=== PATIENT | female | born 1980 | race Caucasian/White ===

== ENCOUNTER 2017-02-19 19:43 | Emergency (ER) | payer MEDICAID, OTHER ==
[~2017-02-19] VITALS: Ht 152.4 cm; Wt 49.9 kg
[~2017-02-19 19:43] MED LIST: DIAZ5TAB PO; IBUP-1007 PO; METR500T PO; NITR100C62 PO; ONDA4TAB10 SL; POLY17PO29 PO
[2017-02-19 19:51] VITALS: BP 111/68
--- NOTE | 2017-02-19 19:51 | PHYS DOC ---
Past Medical History Past Medical History: Sciatica Past Surgical History: , Tubal ligation Additional Past Surgical Histo: x 3 Alcohol Use: None Drug Use: None Adult General Chief Complaint Chief Complaint: ABDOMINAL PAIN [facility] Patient is a 36 year old female presenting to the emergency department for evaluation of suprapubic abdominal pain that has been going on for the past 2 days and she says it is associated with burning urination but no fevers chills vaginal bleeding vaginal discharge diarrhea or constipation. Patient denies having any abdominal surgeries. Patient is in no obvious distress with normal vital signs. He has concerns of STD exposure but she is not willing to be treated rather she wants to have the results sent and then be called and they come back positive. Review of Systems Review of Systems Constitutional: Denies fever or chills [] Cardiovascular: No additional information not addressed in HPI [] GI: + abdominal pain. No nausea, vomiting, bloody stools or diarrhea [] : + dysuria Allergies Allergies Allergies Coded Allergies Type Severity Reaction Last Updated Verified meperidine Allergy Unknown Itching 01/19/16 Yes Physical Exam Physical Exam Constitutional: Well developed, well nourished, no acute distress, non-toxic appearance. [] Cardiovascular:Heart rate regular rhythm, no murmur [] Lungs & Thorax: Bilateral breath sounds clear to auscultation [] Abdomen: Bowel sounds normal, soft, + mild suprapubic tenderness, no rebound or guarding, no masses, no pulsatile masses. [] Current Patient Data Vital Signs Vital Signs Date Time Temp Pulse Resp B/P (MAP) Pulse Ox O2 Delivery O2 Flow Rate FiO2 02/19/17 19:51 98.2 91 18 111/68 (82) 99 Room Air 98.2 Lab Values Laboratory Tests Test 02/19/17 20:15 Urine Collection Type U cath Urine Color Yellow Urine Clarity Cloudy Urine pH 7.5 Urine Specific Story >=1.030 Urine Protein 100 mg/dL (NEG-TRACE) Urine Glucose (UA) Negative mg/dL (NEG) Urine Ketones (Stick) Trace mg/dL (NEG) Urine Blood Small (NEG) Urine Nitrite Negative (NEG) Urine Bilirubin Negative (NEG) Urine Urobilinogen Dipstick 2.0 mg/dL (0.2 mg/dL) Urine Leukocyte Esterase Moderate (NEG) Urine RBC Occ /HPF (0-2) Urine WBC 20-40 /HPF (0-4) Urine Squamous Epithelial Cells Occ /LPF Urine Bacteria 0 /HPF (0-FEW) Urine Mucus Mod /LPF Microbiology 02/19/17 Wet Prep - Final, Complete EKG EKG [] Radiology/Procedures Radiology/Procedures [] Course & Med Decision Making Course & Med Decision Making Patient does have results consistent with a urinary tract infection so she'll be placed on Cipro and Pyridium told to follow with her primary care provider in the next 2-3 days and come back to the ER sooner with worsening pain fevers vomiting or other general concerns. Patient aware and agreeable with plan and verbalized understanding of the above instructions. Of note I did tell patient about the bacterial vaginosis diagnosis but she did not want to be treated with Flagyl at this time. Says that she will follow with her primary care provider later next week for reassessment. Dragon Disclaimer Dragon Disclaimer This electronic medical record was generated, in whole or in part, using a voice recognition dictation system. Departure Departure Impression: Primary Impression: UTI (urinary tract infection) Disposition: 01 HOME, SELF-CARE Condition: GOOD Referrals: UNKNOWN PCP NAME (PCP) Patient Instructions: Urinary Tract Infection Additional Instructions: DRINK PLENTY OF FLUIDS AND EAT A GOOD DIET. COME BACK TO THE ED WITH WORSENING PAIN, FEVERS, VOMITING, OR OTHER GENERAL CONCERNS. Scripts Phenazopyridine Hcl (PYRIDIUM) 100 Mg Tablet 100 MG PO TID, #6 TAB Prov: NED SAMUEL DO 02/19/17 Ciprofloxacin Hcl (CIPROFLOXACIN HCL) 250 Mg Tablet 1 TAB PO BID, #6 TAB Prov: NED SAMUEL DO 02/19/17 Problem Qualifiers Primary Impression: UTI (urinary tract infection) Urinary tract infection type: acute cystitis Hematuria presence: without hematuria Qualified Codes: N30.00 - Acute cystitis without hematuria NED SAMUEL DO Feb 19, 2017 19:51
[2017-02-19 20:24] LABS: BILIRUBIN,URINE NEGATIVE (NEG); GLUCOSE,URINE NEGATIVE (NEG); NITRITE,URINE NEGATIVE (NEG); PH,URINE 7.5; PROTEIN,URINE 100 mg/dL (NEG-TRACE)
[2017-02-19 20:35] LABS: BACTERIA,URINE 0 /HPF (0-FEW); RBC,URINE OCC /HPF (0-2); SQUAMOUS EPITHELIAL CELL,UR OCC /LPF; WBC,URINE 20-40 /HPF (0-4)
[2017-02-19] MEDS ORDERED: PHEN100T82 PO (20:42)
[2017-02-19] MEDS ORDERED: CIPR250T PO (20:42)
== END 2017-02-19 21:10 | disposition home or self-care (01) ==
LOC: ER 19:43
DX: N30.00 Acute cystitis without hematuria (principal); Z98.51 Tubal ligation status; Z88.8 Allergy status to other drugs, medicaments and biological substances
CPT/HCPCS: 51701; 81001; 87086; 99284; Q0111

== ENCOUNTER 2017-08-11 16:13 | Emergency (ER) | payer OTHER ==
[2017-08-11] MEDS: ACETAMINOPHEN 500 MG TABLET PO (16:45)
[2017-08-11 17:09] LABS: INFLUENZA A PATIENT NEGATIVE (NEGATIVE); INFLUENZA B PATIENT NEGATIVE (NEGATIVE); OBC FLU VALID
== END 2017-08-11 17:21 | disposition home or self-care (01) ==
LOC: ER 16:13
DX: J02.0 Streptococcal pharyngitis (principal); H66.92 Otitis media, unspecified, left ear; M79.1 Myalgia; Z88.8 Allergy status to other drugs, medicaments and biological substances
CPT/HCPCS: 87804; 87804-59; 99284

== ENCOUNTER 2018-05-13 16:52 | Emergency (ER) | payer OTHER ==
[~2018-05-13] VITALS: Ht 152.4 cm; Wt 59.0 kg
[~2018-05-13 16:52] MED LIST changes: +AMOX500C PO; +CIPR250T PO; +PHEN100T82 PO
[2018-05-13 17:15] VITALS: BP 108/62
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
[2018-05-13 17:36] LABS: BILIRUBIN,URINE NEGATIVE (NEG); CLARITY,URINE CLOUDY; COLOR,URINE YELLOW; NITRITE,URINE NEGATIVE (NEG); PH,URINE 7.5; PROTEIN,URINE NEGATIVE (NEG-TRACE)
[2018-05-13] MEDS ORDERED: AZITHROMYCIN 250 MG TABLET. PO ONE (17:45)
[2018-05-13] MEDS ORDERED: cefTRIAXone IM 250 MG VIAL IM ONE (17:45)
[2018-05-13] MEDS ORDERED: metroNIDAZOLE 500 MG TABLET PO ONE (17:45)
[2018-05-13 17:48] LABS: BACTERIA,URINE FEW /HPF (0-FEW); RBC,URINE 0 /HPF (0-2); SQUAMOUS EPITHELIAL CELL,UR FEW /LPF; WBC,URINE 0 /HPF (0-4)
[2018-05-17 15:29] LABS: GC PROBE Negative (Negative)
== END 2018-05-13 18:20 | disposition home or self-care (01) ==
LOC: ER 16:52
DX: N89.8 Other specified noninflammatory disorders of vagina (principal); Z11.3 Encounter for screening for infections with a predominantly sexual mode of transmission; Z88.6 Allergy status to analgesic agent
CPT/HCPCS: 81001; 81025; 96372; 99284; J0696; Q0111; Q0144; 87491; 87591

== ENCOUNTER 2018-07-18 12:22 | Emergency (ER) | payer OTHER ==
[~2018-07-18] VITALS: Ht 152.4 cm; Wt 54.4 kg
[2018-07-18 12:41] VITALS: BP 106/77
--- NOTE | 2018-07-18 12:45 | PHYS DOC ---
Past Medical History Past Medical History: No Pertinent History, Sciatica Past Surgical History: , Tubal ligation Additional Past Surgical Histo: x 3 Alcohol Use: None Drug Use: None Adult General Chief Complaint Chief Complaint: INSECT BITE [facility] HPI Patient is a 38 year old female presented ER today for evaluation of a painful lesion on her left upper back for about 2 days. Patient was not sure if she was bitten by a spider. Patient went to work today, she was sent here for evaluation. Patient denies any abdominal pain, no chest pain, no neck pain, no headache. Patient denies any fever. She is up-to-date on tetanus vaccination. Review of Systems Review of Systems Constitutional: Denies fever or chills [] Eyes: Denies change in visual acuity, redness, or eye pain [] HENT: Denies nasal congestion or sore throat [] Respiratory: Denies cough or shortness of breath [] Cardiovascular: No additional information not addressed in HPI [] GI: Denies abdominal pain, nausea, vomiting, bloody stools or diarrhea [] : Denies dysuria or hematuria [] Musculoskeletal: Denies back pain or joint pain [] Integument: POSITIVE FOR PAINFUL LESION ON LEFT UPPER BACK AREA. ] Neurologic: Denies headache, focal weakness or sensory changes [] Endocrine: Denies polyuria or polydipsia [] All other systems were reviewed and found to be within normal limits, except as documented in this note. Current Medications Current Medications Current Medications Medications (Trade) Dose Ordered Sig/Duran Start Time Stop Time Status Last Admin Dose Admin Acetaminophen/ Hydrocodone Bitart (Lortab 5/325) 2 tab 1X ONCE 07/18/18 13:00 07/18/18 13:01 DC 07/18/18 12:57 2 TAB Lidocaine HCl (Lidocaine 1% 20ml Vial) 20 ml 1X ONCE 07/18/18 13:00 07/18/18 13:01 DC 07/18/18 12:57 20 ML Allergies Allergies Allergies Coded Allergies Type Severity Reaction Last Updated Verified meperidine Allergy Unknown Itching 01/19/16 Yes Physical Exam Physical Exam Constitutional: Well developed, well nourished, no acute distress, non-toxic appearance. [] HENT: Normocephalic, atraumatic, bilateral external ears normal, oropharynx moist, no oral exudates, nose normal. [] Eyes: PERRLA, EOMI, conjunctiva normal, no discharge. [] Neck: Normal range of motion, no tenderness, supple, no stridor. [] Cardiovascular:Heart rate regular rhythm, no murmur [] Lungs & Thorax: Bilateral breath sounds clear to auscultation [] Abdomen: Bowel sounds normal, soft, no tenderness, no masses, no pulsatile masses. [] Skin: Warm, dry, THERE IS 4 CM BY 4 CM INDURATED, ERYTHEMA, TENDER LESION ON LEFT UPPER BACK, WITH DARK CENTRAL NECROTIC AREA. Back: No tenderness, no CVA tenderness. [] Extremities: No tenderness, no cyanosis, no clubbing, ROM intact, no edema. [] Neurologic: Alert and oriented X 3, normal motor function, normal sensory function, no focal deficits noted. [] Psychologic: Affect normal, judgement normal, mood normal. [] Current Patient Data Vital Signs Vital Signs Date Time Temp Pulse Resp B/P (MAP) Pulse Ox O2 Delivery O2 Flow Rate FiO2 07/18/18 12:57 16 99 Room Air 07/18/18 12:41 98.3 102 106/77 (87) 98.3 EKG EKG [] Radiology/Procedures Radiology/Procedures [] Course & Med Decision Making Course & Med Decision Making Pertinent Labs and Imaging studies reviewed. (See chart for details) [] Dragon Disclaimer Dragon Disclaimer This electronic medical record was generated, in whole or in part, using a voice recognition dictation system. Incision and Drainage Indication: abscess Procedure: The patient was positioned appropriately. Local anesthesia was LIDOCAINE 1% PLAIN, USED 10 ML, INJECTED WITH 27 GAUGE NEEDLE. An incision was then made BY #11 SCAPEL over the apex of the lesion and WHITE PUS, material was expressed. The drainage cavity was irrigated and NO PACKING WAS PLACED. The patients tetanus status updated as needed. The patient tolerated the procedure well. Complications: none. Departure Departure Impression: Primary Impression: Abscess or cellulitis of back Disposition: 01 HOME, SELF-CARE Condition: STABLE Referrals: NO PCP (PCP) FOLLOW UP WITH YOUR DOCTOR IN 2 DAYS FOR WOUND RECHECK. Patient Instructions: Abscess, Cellulitis Scripts Tramadol Hcl (TRAMADOL HCL) 50 Mg Tablet 50 MG PO Q6HRS PRN for PAIN, #20 TAB Prov: DARSHAN ALCANTAR DO 07/18/18 Sulfamethoxazole/Trimethoprim (BACTRIM DS TABLET) 1 Each Tablet 1 TAB PO BID, #20 TAB Prov: DARSHAN ALCANTAR DO 07/18/18 Cephalexin (KEFLEX) 500 Mg Capsule 500 MG PO QID for 10 Days, #40 CAP Prov: DARSHAN ALCANTAR DO 07/18/18 DARSHAN ALCANTAR DO Jul 18, 2018 12:44
[2018-07-18] MEDS ORDERED: SULF1TAB24 PO (12:48)
[2018-07-18] MEDS ORDERED: TRAM50TA PO (12:48)
[2018-07-18] MEDS ORDERED: CEPH-264 PO (12:48)
[2018-07-18] MEDS ORDERED: LIDOCAINE 1% Multi-Dose 20 ML VIAL. INJ ONE (13:00)
[2018-07-18] MEDS ORDERED: HYDROcodone/APAP 5/325MG 1 TAB TABLET PO ONE (13:00)
== END 2018-07-18 13:35 | disposition home or self-care (01) ==
LOC: ER 12:22
DX: L02.212 Cutaneous abscess of back [any part, except buttock and flank] (principal); Z88.5 Allergy status to narcotic agent
CPT/HCPCS: 10060; 99283

== ENCOUNTER 2018-09-13 06:28 | Emergency (ER) | payer SELFPAY ==
[~2018-09-13] VITALS: Ht 152.4 cm; Wt 56.7 kg
[~2018-09-13 06:28] MED LIST changes: +CEPH-264 PO; +SULF1TAB24 PO; +TRAM50TA PO
[2018-09-13] MEDS ORDERED: METR500T PO (06:58)
--- NOTE | 2018-09-13 06:59 | PHYS DOC ---
Past Medical History Past Medical History: No Pertinent History, Sciatica Past Surgical History: , Tubal ligation Additional Past Surgical Histo: x 3 Alcohol Use: None Drug Use: None Adult General Chief Complaint Chief Complaint: ABDOMINAL PAIN HPI HPI Patient is a 38 year old female presented to ER today for evaluation of vaginal discharge for a week. Patient says she had a history of bacterial vaginosis, she is sure that she has infection again. Patient declined any examination or diagnostic treatment at this time. Patient says she just wants a prescription to treat her infection. Patient says she had been evaluated for STD, was ruled out gonorrhea or chlamydia and HIV in the past. Patient denies any abdominal pain, no nausea vomiting. Patient is not sexually active at this time. Patient denied that she is . Patient denies any urinary symptom. Patient denies any rash in her private area. Review of Systems Review of Systems Constitutional: Denies fever or chills [] Eyes: Denies change in visual acuity, redness, or eye pain [] HENT: Denies nasal congestion or sore throat [] Respiratory: Denies cough or shortness of breath [] Cardiovascular: No additional information not addressed in HPI [] GI: Denies abdominal pain, nausea, vomiting, bloody stools or diarrhea [] : Denies dysuria or hematuria. POSITIVE FOR FOUL DISCHARGE. Musculoskeletal: Denies back pain or joint pain [] Integument: Denies rash or skin lesions [] Neurologic: Denies headache, focal weakness or sensory changes [] Endocrine: Denies polyuria or polydipsia [] All other systems were reviewed and found to be within normal limits, except as documented in this note. Allergies Allergies Allergies Coded Allergies Type Severity Reaction Last Updated Verified meperidine Allergy Unknown Itching 01/19/16 Yes Physical Exam Physical Exam Constitutional: Well developed, well nourished, no acute distress, non-toxic appearance. [] HENT: Normocephalic, atraumatic, Neck: NOT DONE Cardiovascular:Heart rate regular rhythm, no murmur [] Lungs & Thorax: Bilateral breath sounds clear to auscultation [] Abdomen: Bowel sounds normal, soft, no tenderness, no masses, no pulsatile masses. [] Skin: Warm, dry, no erythema, no rash. [] Back: No tenderness, no CVA tenderness. [] Extremities: No tenderness, no cyanosis, no clubbing, ROM intact, no edema. [] Neurologic: Alert and oriented X 3, normal motor function, normal sensory function, no focal deficits noted. [] Psychologic: Affect normal, judgement normal, mood normal. [] Current Patient Data Vital Signs Vital Signs Date Time Temp Pulse Resp B/P (MAP) Pulse Ox O2 Delivery O2 Flow Rate FiO2 09/13/18 06:51 98.6 16 120/56 (77) 97 Room Air 98.6 EKG EKG [] Radiology/Procedures Radiology/Procedures [] Course & Med Decision Making Course & Med Decision Making Pertinent Labs and Imaging studies reviewed. (See chart for details) [] Dragon Disclaimer Dragon Disclaimer This electronic medical record was generated, in whole or in part, using a voice recognition dictation system. Departure Departure Impression: Primary Impression: Bacterial vaginosis Disposition: 01 HOME, SELF-CARE Condition: STABLE Referrals: NO PCP (PCP) follow up with your doctor for further evaluation and treatment Patient Instructions: Bacterial Vaginosis Scripts Metronidazole (FLAGYL) 500 Mg Tablet 1 TAB PO BID, #14 TAB Prov: DARSHAN ALCANTAR DO 09/13/18 DARSHAN ALCANTAR DO Sep 13, 2018 06:59
[2018-09-13 07:00] VITALS: BP 115/60
== END 2018-09-13 08:09 | disposition home or self-care (01) ==
LOC: ER 06:28
DX: N76.0 Acute vaginitis (principal); B96.89 Other specified bacterial agents as the cause of diseases classified elsewhere; Z98.890 Other specified postprocedural states; Z98.51 Tubal ligation status; Z88.8 Allergy status to other drugs, medicaments and biological substances
CPT/HCPCS: 99283

== ENCOUNTER 2020-01-02 15:35 | Emergency (ER) | payer SELFPAY ==
[~2020-01-02] VITALS: Ht 152.4 cm; Wt 59.0 kg
[2020-01-02 17:23] LABS: BILIRUBIN,URINE NEGATIVE (NEG); CLARITY,URINE CLEAR; COLOR,URINE YELLOW; NITRITE,URINE NEGATIVE (NEG); PH,URINE 6.5 (<5.0-8.0); PROTEIN,URINE NEGATIVE (NEG-TRACE)
[2020-01-02] MEDS ORDERED: METR500T PO (17:29)
[2020-01-02 17:30] VITALS: BP 124/77
--- NOTE | 2020-01-02 17:30 | PHYS DOC ---
Past Medical History Past Medical History: No Pertinent History, Sciatica (ZAC BAEZ APRN) Past Surgical History: , Tubal ligation Additional Past Surgical Histo: x 3 (ZAC BAEZ APRN) Smoking Status: Never Smoker Alcohol Use: None Drug Use: None (ZAC BAEZ APRN) General Adult EDM: Chief Complaint: ABDOMINAL PAIN HPI: HPI: Patient is a 39 year old female who presents to the emergency department with complaints of pelvic pain and irregular vaginal discharge for the last 2 weeks. She reports concerns of bacterial vaginosis or another sexually transmitted infection. Patient reports that her last menstrual cycle began 2 days ago and that she typically has bacterial vaginosis after menstrual cycle. She denies any dysuria, hematuria, increased urinary frequency, low back pain, lower abdominal pain, fever, cough, shortness of breath, sore throat, ear pain, headache, nausea, or vomiting. Patient currently rates her pelvic pain a 10 out of 10 on the pain scale, she denies any alleviating factors. (ZAC BAEZ APRN) Review of Systems: Review of Systems: Constitutional: Denies fever or chills. [] Eyes: Denies change in visual acuity. [] HENT: Denies nasal congestion or sore throat. [] Respiratory: Denies cough or shortness of breath. [] Cardiovascular: Denies chest pain or edema. [] GI: Denies abdominal pain, nausea, vomiting, bloody stools or diarrhea. [] : Denies dysuria. [] Musculoskeletal: Denies back pain or joint pain. [] Integument: Denies rash. [] Neurologic: Denies headache, focal weakness or sensory changes. [] Endocrine: Denies polyuria or polydipsia. [] Lymphatic: Denies swollen glands. [] Psychiatric: Denies depression or anxiety. [] (ZAC BAEZ APRN) Heart Score: Risk Factors: Risk Factors: DM, Current or recent (<one month) smoker, HTN, HLP, family history of CAD, obesity. Risk Scores: Score 0 - 3: 2.5% MACE over next 6 weeks - Discharge Home Score 4 - 6: 20.3% MACE over next 6 weeks - Admit for Clinical Observation Score 7 - 10: 72.7% MACE over next 6 weeks - Early Invasive Strategies (ZAC BAEZ APRN) Allergies: Allergies: Allergies Coded Allergies Type Severity Reaction Last Updated Verified meperidine Allergy Unknown Itching 01/19/16 Yes (ZAC BAEZ APRN) Physical Exam: PE: Constitutional: Well developed, well nourished, no acute distress, non-toxic appearance. HENT: Normocephalic, atraumatic, bilateral external ears normal, nose normal. Eyes: PERRLA, EOMI, conjunctiva normal, no discharge. Neck: Normal range of motion, no stridor. Cardiovascular: Heart rate regular rhythm Lungs & Thorax: Respirations even and unlabored, no retractions, no respiratory distress Pelvic Exam: [employer] present Yani COLE Abdomen: Nontender, soft External Genitalia: Normal Skin Speculum: Normal vaginal mucosa, brown-tinged foul-smelling vaginal discharge present in vaginal vault, cervix nonfriable Bimanual: No adnexal masses or tenderness, No CMT Skin: Warm, dry, no erythema, no rash. Extremities: No cyanosis, ROM intact, no edema. Neurologic: Alert and oriented X 3, no focal deficits noted. Psychologic: Affect normal, judgement normal, mood normal. (ZAC BAEZ APRN) Current Patient Data: Labs: Microbiology 01/02/20 Wet Prep - Final, Complete Vital Signs: Vital Signs Date Time Temp Pulse Resp B/P (MAP) Pulse Ox O2 Delivery O2 Flow Rate FiO2 01/02/20 15:38 98.4 64 18 127/51 (76) 98 Room Air 98.4 (ZAC BAEZ APRN) EKG: EKG: [] (ZAC BAEZ APRN) Radiology/Procedures: Radiology/Procedures: [] (ZAC BAEZ APRN) Course & Med Decision Making: Course & Med Decision Making Pertinent Labs and Imaging studies reviewed. (See chart for details) Patient is a 39-year-old female who presented to the emergency department with concerns of bacterial vaginosis or sexually transmitted infection. Physical exam is concerning for possible sexually transmitted infection. Wet mount suggest bacterial vaginosis. Patient's urine is likely contaminated. Prescription was written for Flagyl. Fill the prescription and use as directed. Recommend that you go to your local health department for comprehensive sexually transmitted disease testing. You have been treated for a suspected gonorrhea and chlamydia. Avoid having intercourse until the results of gonorrhea and chlamydia testing are available, these results will not be available for 48 hours. If one or both of these tests is positive, you need to refrain from intercourse for approximately 1 week following the treatment of any current partners. Follow-up with your primary care doctor if symptoms persist, return to ER symptoms worsen. Patient verbalized an understanding of home care, medications, follow-up, and return to ED instructions and was in agreement with the plan of care. [] (ZAC BAEZ APRN) Dragon Disclaimer: Dragon Disclaimer: This electronic medical record was generated, in whole or in part, using a voice recognition dictation system. (ZAC BAEZ APRN) Departure Departure Impression: Primary Impression: Bacterial vaginosis Disposition: HOME, SELF-CARE Condition: STABLE Referrals: NO PCP (PCP) Patient Instructions: Bacterial Vaginosis, [id number] Additional Instructions: Fill the prescription and take it as directed. Follow-up with your primary care doctor if symptoms persist, return to the ER symptoms worsen. Scripts Metronidazole (FLAGYL) 500 Mg Tablet 1 TAB PO BID, #14 TAB 0 Refills Prov: ZAC BAEZ APRN 01/02/20 Justicifation of Admission Dx: Justifications for Admission: Justification of Admission Dx: N/A (ZAC BAEZ APRN) Attending Signature Attending Signature I have reviewed the PA/AIR CONDITIONING MANAGER's note and plan of care. I was available for consultation as needed during the patient's visit in the emergency department. I agree with the clinical impression, plan, and disposition. (JADEN ELLSWORTH DO) ZAC BAEZ APRN Jan 02, 2020 17:29 JADEN ELLSWORTH DO Jan 08, 2020 05:13
[2020-01-02 17:36] LABS: BACTERIA,URINE MODERATE /HPF (0-FEW); SQUAMOUS EPITHELIAL CELL,UR MOD /LPF
[2020-01-03 18:09] LABS: GC PROBE Negative (Negative)
== END 2020-01-02 17:37 | disposition home or self-care (01) ==
LOC: ER 15:35
DX: N76.0 Acute vaginitis (principal); B96.89 Other specified bacterial agents as the cause of diseases classified elsewhere; Z98.51 Tubal ligation status; Z98.890 Other specified postprocedural states; Z88.8 Allergy status to other drugs, medicaments and biological substances
CPT/HCPCS: 81001; 87086; 87491; 87591; 99283; Q0111

== ENCOUNTER 2021-03-19 08:46 | Emergency (ER) | payer SELFPAY ==
[~2021-03-19] VITALS: Ht 152.4 cm; Wt 59.0 kg
[2021-03-19] MEDS ORDERED: HYDROcodone/APAP 10/325 1 TAB TABLET PO ONE (10:15)
[2021-03-19] MEDS ORDERED: KETOROLAC 60 MG/2 ML VIAL. IM ONE (10:15)
[2021-03-19 10:30] VITALS: BP 108/68
[2021-03-19] MEDS ORDERED: methylPREDNISolone ACETATE 80 MG/ML VIAL. IM ONE (10:30)
[2021-03-19] MEDS ORDERED: CYCL10TA2 PO (10:38)
[2021-03-19] MEDS ORDERED: METH4TAB2 PO (10:38)
[2021-03-19] MEDS ORDERED: IBUP-1007 PO (10:38)
--- NOTE | 2021-03-19 10:38 | PHYS DOC ---
Past Medical History Past Medical History: No Pertinent History, Sciatica (JADEN KAY APRN) Past Surgical History: , Tubal ligation Additional Past Surgical Histo: x 3 (JADEN KAY APRN) Smoking Status: Never Smoker Alcohol Use: None Drug Use: None (JADEN KAY APRN) General Adult EDM: Chief Complaint: BACK PAIN - NO INJURY HPI: HPI: Patient is a 41-year-old female presents emergency department complaining of sciatica flareup on the right. Patient reports she has had sciatica problems for the past 7 years, woke up 3 days ago with right lower back pain which radiates into her buttocks and partially down the back of her right thigh, patient describes her pain as a burning painful sensation, denies numbness or tingling to her buttocks or periarea, denies numbness or tingling down her extremities. Denies pulsating feeling, denies night sweats, denies pruritus of the surrounding painful regions of the low back and legs, denies a cold feeling in the toes, denies any infections or skin infections, denies sexual dysfunction, denies loss of appetite or recent loss of weight, denies any changes in appearance is of her skin or muscle mass. Denies loss of bowel or bladder, denies urinary retention. Denies burning with urination, urinary frequency, dysuria. Patient denies vaginal discharge, denies STI concerns. Patient reports her last menstrual cycle was 2 weeks ago with normal duration of flow. Patient denies any other health history, reports taking no prescription medications at home, states she tried Naprosyn and Tylenol yesterday without relief of her 9 out of 10 back pain. Patient reports increased pain with coughing, standing up from a sitting position. Patient reports relief in pain if lying still or sitting still. Denies midline spinal low back pain. Denies diaphoretic episodes, denies recent fever or chills, neck pain, denies cough, shortness of breath, chest pain. Patient denies any other physical complaints or physical concerns. (JADEN KAY APRN) Review of Systems: Review of Systems: 14 body systems of review of systems have been reviewed. See HPI for pertinent positives and negative responses, otherwise all other systems are negative, nonpertinent or noncontributory. Constitutional: Negative except as outlined in HPI above. Skin: Negative except as outlined in HPI above. Eyes: Negative except as outlined in HPI above. HENT: Negative except as outlined in HPI above. Respiratory: Negative except as outlined in HPI above. Cardiovascular: Negative except as outlined in HPI above. GI: Negative except as outlined in HPI above. : Negative except as outlined in HPI above. Musculoskeletal: Negative except as outlined in HPI above. Integument: Negative except as outlined in HPI above. Neurologic: Negative except as outlined in HPI above. Endocrine: Negative except as outlined in HPI above. Lymphatic: Negative except as outlined in HPI above. Psychiatric: Negative except as outlined in HPI above. (JADEN KAY APRN) Heart Score: C/O Chest Pain: No Risk Factors: Risk Factors: DM, Current or recent (<one month) smoker, HTN, HLP, family history of CAD, obesity. Risk Scores: Score 0 - 3: 2.5% MACE over next 6 weeks - Discharge Home Score 4 - 6: 20.3% MACE over next 6 weeks - Admit for Clinical Observation Score 7 - 10: 72.7% MACE over next 6 weeks - Early Invasive Strategies (JADEN KAY APRN) Allergies: Allergies: Allergies Coded Allergies Type Severity Reaction Last Updated Verified meperidine Allergy Unknown Itching 03/19/21 Yes (JADEN KAY APRN) Physical Exam: PE: Constitutional: Well developed, well nourished, no acute distress, non-toxic appearance. 41-year-old female in no apparent distress. HENT: Normocephalic, atraumatic. Eyes: Conjunctiva normal, no discharge. Neck: Normal range of motion, no stridor. Cardiovascular: No cyanosis appreciated, distal cap refill less than 2 seconds. Lungs & Thorax: Patient is in no respiratory distress, no audible adventitious lung sounds appreciated. Abdomen: Nontender, no abnormalities noted. Skin: Warm, dry, no erythema, no rash. Back: No deformities appreciated, no midline spinal tenderness, pain to right lumbar area with palpation, radiates to buttocks and superior aspect of posterior right thigh, distal cap refill less than 2 seconds, 2+ dorsalis pedis/posterior tibial pulse, no swelling, no deformities, no erythema, Extremities: No tenderness, no cyanosis, no clubbing, ROM intact, no edema. Neurologic: Alert and oriented X 3, normal motor function, normal sensory fu nction, no focal deficits noted. Psychologic: Affect normal, judgement normal, mood normal. (JADEN KAY APRN) Current Patient Data: Vital Signs: Vital Signs Date Time Temp Pulse Resp B/P (MAP) Pulse Ox O2 Delivery O2 Flow Rate FiO2 03/19/21 10:06 98.5 64 18 120/75 (93) 99 Room Air 98.5 (JADEN KAY APRN) EKG: EKG: [] (JADEN KAY APRN) Radiology/Procedures: Radiology/Procedures: [] (JADEN KAY APRN) Course & Med Decision Making: Course & Med Decision Making Pertinent Labs and Imaging studies reviewed. (See chart for details) 41-year-old female, vital signs reviewed, presents to the emergency department concerning sciatica flareup. Patient has a 7-year history of sciatica problems, reports this flareup typical for her sciatica flareups, physical presentation and examination consistent with sciatica of the right. The patient is afebrile, no saddle anesthesia, this is unlikely a disc space infection, cauda equina syndrome, intermittent claudication, dominant CVA, peroneal palsy, or Ag's neuroma. No imaging indicated for this visit, patient appears uncomfortable but is nontoxic in appearance. We'll treat today in the emergency department with IM steroid, p.o. pain medication, ice pack, discussed with patient will give work excuse for today, ice packs 30 minutes on 30 minutes off while awake, will prescribe NSAID therapy, as needed muscle relaxer, Medrol Dosepak. Discussed side effects of medications, discussed safety precautions for narcotic p.o. medication given today in the ER. Gonzalez with patient will not prescribe p.o. n arcotics for home pain therapy, follow-up with primary care soon for ongoing sciatica problems. Patient is amenable to ED discharge planning. Discussed with the patient all findings and diagnostic testing as well as the need to follow-up with their primary care provider for further evaluation and treatment or return to the ED if any new or worsening symptoms. Strict return precautions were also discussed at length, the patient voiced understanding and agreement with the discharge planning. The patient was nontoxic in appearance, in no apparent distress, and hemodynamically stable at the time of disposition. (JADEN KAY APRN) Dragon Disclaimer: Dragon Disclaimer: This electronic medical record was generated, in whole or in part, using a voice recognition dictation system. (JADEN KAY APRN) Departure Departure Impression: Primary Impression: Lumbago with sciatica, right side Qualified Codes: M54.41 - Lumbago with sciatica, right side; G89.29 - Other chronic pain Disposition: HOME / SELF CARE / HOMELESS Condition: GOOD Referrals: NO PCP (PCP) Patient Instructions: Sciatica, Sciatica with Rehab-Sports[facility] Additional Instructions: You were seen today in the emergency department for sciatica pain flareup. Your physical examination is consistent with sciatica pain. You were treated today in the emergency department with an intramuscular steroid injection, hydrocodone oral tablet pain medication, and an intramuscular injection of an NSAID medication called Toradol. As we discussed, please use ice packs to your low back 30 minutes on 30 minutes off while awake to assist with discomfort. I have attached information to this document regarding sciatica pain and exercises to assist in pain management. As we discussed, I am prescribing you a muscle relaxer, NSAID therapy at home, and a Medrol Dosepak. Please take as directed. Please follow-up with your primary care physician for ongoing pain management. Thank you for visiting our Emergency Department. It was a pleasure taking care of you today in the emergency department and we appreciate you trusting us with your care. If any additional problems come up don't hesitate to return to visit us. Please follow up with your primary care provider so they can plan additional care if needed and know about the problem that you had. If symptoms worsen come back to the Emergency Department. Any concerning symptoms that start such as chest pain, shortness of air, weakness or numbness on one side of the body, running high fevers or any other concerning symptoms return to the ER. Scripts Methylprednisolone (MEDROL) 4 Mg Tab.ds.pk 1 PKG PO UD for sciatica pain, #1 PKG 0 Refills Prov: TREYJADEN [place] DUMONTN 03/19/21 Ibuprofen (IBUPROFEN) 600 Mg Tablet 600 MG PO PRN Q6HRS PRN for INFLAMMATION, #30 TAB 0 Refills Prov: JADEN KAY APRN 03/19/21 Cyclobenzaprine Hcl (CYCLOBENZAPRINE HCL) 10 Mg Tablet 10 MG PO TID for muscle cramping of low back, #12 TAB 0 Refills Prov: JADEN KAY APRN 03/19/21 Attending Signature I have participated in the care of this patient and I have reviewed and agree with all pertinent clinical information above including history, exam, and recommendations. (DAMIAN COLLINS DO) JADEN KAY APRN Mar 19, 2021 10:38 DAMIAN COLLINS DO Mar 19, 2021 11:07
== END 2021-03-19 10:52 | disposition home or self-care (01) ==
LOC: ER 08:46
DX: M54.41 Lumbago with sciatica, right side (principal); Z98.51 Tubal ligation status; Z88.1 Allergy status to other antibiotic agents
CPT/HCPCS: 96372; 99284; J1040; J1885